=== PATIENT | female | born 1975 | race American Indian/Alaskan Native ===

== ENCOUNTER 2022-01-28 11:35 | Outpatient (CLI) | payer BC, OTHER ==
--- NOTE | 2022-01-29 16:01 | Mammography Report ---
DIGITAL SCREENING MAMMOGRAM WITH CAD, 01/28/2022 CLINICAL INFORMATION / INDICATION: Routine screening TECHNIQUE: Digital bilateral 2D mammography was obtained in the craniocaudal and mediolateral obliqu e projections. This examination was interpreted with the benefit of Computer-Aided Detection analysis . COMPARISON: None, baseline FINDINGS: Breast Density: There are scattered areas of fibroglandular density. No dominant mass, suspicious calcifications, or architectural distortion in the right breast. On MLO view in the far posterior aspect of the left breast just above the level of the nipple, a 15 m m asymmetric density is seen. This is not visualized on the cc view. IMPRESSION: Left asymmetric density Follow up recommendation: Left spot compression views and ultrasound if needed BI-RADS Category 0: INCOMPLETE. Needs additional imaging evaluation and/or prior mammograms for joie palm. A "normal" or negative report should not discourage follow up or biopsy of a clinically significant f inding. A written summary of these findings will be mailed to the patient. The patient will be entered into a mammography reporting system which will generate a reminder letter for the patient's next appointmen t at the appropriate interval. The [employer] recommends yearly mammograms starting at age 40 and continuing as l sid as a woman is in good health. Breast MRI is recommended for women with an approximate 20-25% or greater lifetime risk of breast cancer, including women with a strong family history of breast or ova koffi cancer or who have been treated for Hodgkin's disease. Signer Name: Justin Perez MD Signed: 01/29/2022 3:56 PM Workstation Name: [email or web address]
== END 2022-01-28 11:36 | disposition home or self-care (01) ==
LOC: MAMMO 11:35
PROVIDERS: ATTEND Internal Medicine
DX: Z12.31 Encounter for screening mammogram for malignant neoplasm of breast (principal); N64.89 Other specified disorders of breast
CPT/HCPCS: 77067

== ENCOUNTER 2022-04-05 12:50 | Outpatient (CLI) | payer OTHER ==
--- NOTE | 2022-04-05 17:52 | Mammography Report ---
DIGITAL DIAGNOSTIC MAMMOGRAM WITH CAD CONVENTIONAL, 04/05/2022 CLINICAL INFORMATION / INDICATION: Patient presents as a callback from screening mammogram for furthe r evaluation of an asymmetric density in the left breast. ABNORMAL MAMMOGRAM TECHNIQUE: Digital left mammographic imaging was performed. Spot compression views were obtained. This examination was interpreted with the benefit of Computer-aided Detection analysis. COMPARISON: Prior mammogram 01/28/2022 FINDINGS: Breast Density: There are scattered areas of fibroglandular density. The previously described asymmetric density in the posterior superior left breast persists but appear s less conspicuous on spot compression views. This most likely reflects an island of focal dense fibr oglandular tissue. IMPRESSION: 1. The previously described density persists but is less conspicuous on additional views. This most l ikely reflects an island of focal dense fibroglandular tissue. Recommend targeted ultrasound of the s uperior left breast for confirmation. The patient was unable to stay for ultrasound today, so we will need to come back for this examination. Follow up recommendation: Ultrasound BI-RADS Category 0: INCOMPLETE. Needs additional imaging evaluation and/or prior mammograms for joie palm. A "normal" or negative report should not discourage follow up or biopsy of a clinically significant f inding. A written summary of these findings will be mailed to the patient. The patient will be entered into a mammography reporting system which will generate a reminder letter for the patient's next appointmen t at the appropriate interval. According to the [employer], yearly mammograms are recommended starting at age 40 and continuing as long as a woman is in good health. Breast MRI is recommended for women with an kelly roximately 20-25% or greater lifetime risk of breast cancer, including women with a strong family his tory of breast or ovarian cancer and women who have been treated for Hodgkin's disease. Signer Name: Pina Burris MD Signed: 04/05/2022 5:47 PM Workstation Name: [email or web address]
== END 2022-04-05 12:51 | disposition home or self-care (01) ==
LOC: MAMMO 12:50
PROVIDERS: ATTEND Internal Medicine
DX: R92.8 Other abnormal and inconclusive findings on diagnostic imaging of breast (principal)

== ENCOUNTER 2022-04-12 10:39 | Outpatient (CLI) | payer OTHER ==
--- NOTE | 2022-04-12 15:43 | Ultrasound Report ---
ULTRASOUND BREAST LEFT LIMITED, 04/12/2022 CLINICAL INFORMATION / INDICATION: R92.8. Patient presents as a callback from screening mammogram for further evaluation of an asymmetric density in the left breast. TECHNIQUE: Targeted ultrasound evaluation was performed of the area of interest. COMPARISON: Prior mammogram 01/28/2022 and 04/05/2022 FINDINGS: Targeted ultrasound of the superior left breast reveals normal fibroglandular tissue. No suspicious c ystic or solid lesion identified. IMPRESSION: 1. The previously described asymmetric density in the superior left breast was less conspicuous on re cent spot compression views, and is without sonographic correlate, compatible with overlapping fibrog landular tissue. No suspicious sonographic abnormality identified. Follow up recommendation: Routine yearly screening mammogram. BI-RADS Category 1: NEGATIVE. A normal or "negative" report should not preclude biopsy or follow-up of a clinically suspicious find ing. Signer Name: Pina Burris MD Signed: 04/12/2022 3:38 PM Workstation Name: [email or web address]
== END 2022-04-12 10:40 | disposition home or self-care (01) ==
LOC: US 10:39
PROVIDERS: ATTEND Internal Medicine
DX: R92.8 Other abnormal and inconclusive findings on diagnostic imaging of breast (principal)